=== PATIENT | male | born 1985 | race Caucasian/White ===

== ENCOUNTER 2019-05-07 06:04 | Day surgery (SDC) | payer OTHER ==
[2019-05-07 06:30] VITALS: O2SAT 96
[2019-05-07] MEDS ORDERED: Lactated Ringers 1,000 ML IV SCH ×2 (06:30)
[2019-05-07] MEDS ORDERED: DIPRIVAN 200 MG/20 ML IV ONE ×2 (07:06→07:16)
[2019-05-07 08:13] VITALS: BP 123/84; PULSE 69
--- NOTE | 2019-05-07 08:31 | OP ---
SURGERY DATE/TIME: 05/07/2019 0705 PREOPERATIVE DIAGNOSIS: Right upper quadrant abdominal pain. POSTOPERATIVE DIAGNOSIS: Mild gastritis. PROCEDURE: Esophagogastroduodenoscopy with biopsy. SURGEON: Dr. Thomas. ANESTHESIA: Medications were given by the anesthesia department. HISTORY: The patient is a 33 year old white male patient who complains of right upper quadrant abdominal pain. He reports he has previously had his gallbladder removed but the pain somewhat reminiscent of the pain he had before he had his gallbladder removed. The patient was seen at [facility] and had ultrasound and CT scans performed which were apparently unrevealing. The patient was placed on Pepcid which he reports has improved his symptoms somewhat but he continues to have the pain. The patient is felt the need to have endoscopic evaluation. He was apprised of the risks of the procedure including the risk of perforation, phlebitis, untoward reaction to medication, bleeding and missed lesions. The patient verbalized his understanding and desired to have the procedure performed. DESCRIPTION OF PROCEDURE: The patient was given the medications by the anesthesia department. He had continuous pulse oximetry, ECG monitoring, intermittent blood pressure monitoring and tidal CO2 monitoring during the examination. He was placed in the left lateral decubitus position. A bite block was placed and the flexible Olympus gastroscope was used to intubate the oropharynx. The esophagus was easily intubated and appeared to be normal throughout its length. The stomach was entered where normal gastric rugal folds were seen and these distended nicely with insufflation of air. The scope was passed along the greater curvature of the stomach to the antrum. The pylorus was encountered and intubated. Duodenum inspected and found to be normal. The scope is withdrawn towards the stomach. A retroflex view was obtained of the lesser curvature, fundus and cardia regions of the stomach and these appeared to be essentially normal. The scope was then redirected towards the gastric antrum where biopsies were obtained to rule out the presence of Helicobacter pylori-type organisms. The scope was then removed from the patient who tolerated the procedure well and was sent back to outpatient recovery in good condition.
== END 2019-05-07 08:07 | disposition home or self-care (01) ==
LOC: SDC 06:04
PROVIDERS: ATTEND Family Medicine
DX: K29.70 Gastritis, unspecified, without bleeding (principal)
CPT/HCPCS: 88305; 94250; J2704